=== PATIENT | male | born 1940 | race Caucasian/White ===

== ENCOUNTER → 2019-06-25 | Day surgery (SDC) | payer BC, MEDICARE, OTHER ==
[~2019-06-25] VITALS: Ht 182.9 cm; Wt 81.2 kg
[2019-06-25] VITALS (8 sets, daily range): BP systolic 82–120; BP diastolic 26–44; PULSE 70–77; RESP 22–27; Ht 182.9 cm; Wt 81.2 kg
[~2019-06-25] MED LIST: ADV25050; ASCO-288; CALC0.255; CEFAZOLIN 1 GM INJ ONE; DIPH-232; FURO40TA4; GEMF600T; INSU100V19; INSU100V23; INSU3INS7; METF-480; METO-448; METO10TA92; MIDAZOLAM 1 MG/ML 2 ML INJ ONE; MULT1CAP57; OMEP20CA16; POTA10TA37; PROP1TAB; RTPRO5; TIOT18CA; ZOLP5TAB
--- NOTE | 2019-06-25 13:54 | OPR ---
Date/Time of Note Date/Time of Note DATE: 06/25/19 TIME: 13:52 Operative Report Preoperative Diagnosis dysphagia Postoperative Diagnosis same Operation/Procedure Performed egd and peg Surgeon see signature line Bakery Sales Clerk none Anesthesia Type: MAC Anesthesiologist: CRISTI PEREIRA Estimated Blood Loss: none Transfusion none Specimen none Grafts/Implants none Tubes/Drains none Complications none Pt Condition Post Procedure: stable Disposition: PACU Indications dysphagia Procedure Description egd and peg ZENY MORILLO MD Jun 25, 2019 13:54
--- NOTE | 2019-06-25 21:04 | GILP ---
DATE OF PROCEDURE: PROCEDURE: Esophagogastroduodenoscopy. PREOPERATIVE DIAGNOSIS: The patient presenting with history of difficulty in swallowing. Previously , the patient had a gastrostomy tube in place which had to be removed because of the gastrostomy site infection and leaking from the gastrostomy site. Now, at this time, procedure is performed to creat e access for long-term nutritional support. POSTOPERATIVE DIAGNOSIS: The patient presenting with history of difficulty in swallowing. Previousl y, the patient had a gastrostomy tube in place which had to be removed because of the gastrostomy sit e infection and leaking from the gastrostomy site. Now, at this time, procedure is performed to crea te access for long-term nutritional support. G-tube was placed endoscopically. DESCRIPTION OF PROCEDURE: After informed written consent was obtained, the patient was asked to lie in the supine position. Intravenous anesthesia was given by anesthesiologist, Dr. Rodriguez. When the pa tient was somnolent, the Olympus video upper endoscope was inserted into the oropharynx, then into th e esophagus, subsequently into the stomach. Old gastrostomy site was noted. Duodenum appeared jenna l. At this time, the existing gastrostomy site was cleaned with Betadine and alcohol. At this time, it appears there is a reasonable opening; hence, I inserted the guidewire through this opening and f ound to be entering into the gastric cavity. The guidewire was grabbed with a polypectomy snare and then it was brought out through the mouth along with the endoscope. To this end of the guidewire, a #20 Microvasive G-tube was tied in a loop fashion and then it was brought out through the abdominal w all incision. The retention bumper was placed over the G-tube close to the skin. The tapered end of the gastrostomy tube was cut, the adapter was placed and the procedure was terminated. It is to be noted that this procedure was performed after using Betadine and alcohol to clean the gastrostomy sit e and antibiotic was also used on the site of the gastrostomy after the placement of the G-tube. The procedure was terminated. PLAN: Recommend starting G-tube feeding later this evening. Dictated By: ZENY ANTUNEZ/DANELLE Conf#: [id number] [facility]#: [id number] CC: HUSAM PRATHER MD;*End*
--- NOTE | 2019-06-28 13:46 | PREAC ---
Date/Time of Note Date/Time of Note DATE: 06/28/19 TIME: 13:44 Anesthesia Eval and Record Evaluation Time Pre-Procedure Interview DATE: 06/25/19 TIME: 13:10 Age 78 Sex male NPO: 8 hrs Preoperative diagnosis respiratory failure Planned procedure egd with peg Past Medical History Past Medical History: Includes Cardio: CAD Pulm: COPD, Other (trach) Neuro: Peripheral neuropathy Heme: Anemia Surgery & Anesthesia Issues No known issue Meds Anticoagulation: No Beta Juan F within 24 hr: Yes Reported Medications Insulin Regular, Human* (Novolin R*) 100 U/Ml Vial 12/18/10 Gemfibrozil* (Lopid*) 600 Mg Tablet 12/18/10 Zolpidem Tartrate* (Ambien*) 5 Mg Tablet 09/17/10 Albuterol Sulfate* (Proventil* Neb) 0.5 Ml Nebu 09/17/10 Diphenoxylate Hcl-Atropine (Lomotil) 1 Tab Tablet 09/17/10 Propoxyphene/Acetaminophen (Darvocet-N 100 Tablet) 1 Tab Tablet 09/17/10 Metoclopramide* (Reglan*) 10 Mg Tablet 09/17/10 Salmeterol Xinaf/Fluticasone* (Advair 250/50 Diskus*) 1 Inh Inha 09/17/10 Tiotropium Benkelman* (Spiriva*) 18 Mcg Cap.w.dev 09/17/10 Metformin* (Glucophage*) 850 Mg Tablet 09/17/10 Omeprazole* (Omeprazole*) 20 Mg Capsule. 09/17/10 Multivitamins W-Minerals (Multivitamin) 1 Cap Capsule 09/17/10 Ascorbic Acid (Vitamin C) 500 Mg Tablet 09/17/10 Furosemide (Lasix) 40 Mg Tab 09/17/10 Potassium Chloride* (K-Dur*) 10 Meq Tab.prt.sr 09/17/10 Metoprolol Tartrate* (Lopressor*) 25 Mg Tab 09/17/10 Gemfibrozil* (Lopid*) 600 Mg Tablet 09/17/10 Calcitriol* (Rocaltrol*) 0.25 Mcg Capsule 09/17/10 Insulin Glargine,Hum.rec.anlog (Lantus) 100 U/Ml Vial 09/17/10 Insulin Glargine,Hum.rec.anlog (Lantus) 100 U/Ml Vial 09/17/10 Insulin Regular, Human (Novolin R) 100 Units/Ml Pen 09/17/10 Meds reviewed: Yes Allergies Coded Allergies: codeine (Verified Allergy, Intermediate, HIVES, 12/18/10) lisinopril (Unverified Allergy, Unknown, unknown, 10/11/16) morphine (Unverified Allergy, Unknown, unknown, 10/11/16) Uncoded Allergies: FISH (Adverse Reaction, Mild, 10/20/16) SHELL FISH (Adverse Reaction, Mild, 10/20/16) Allergies Reviewed: Yes Labs/Studies Labs Reviewed: Reviewed by anesthesiologist test: N/A Pre-procedure Exam Last vitals Vital Signs Date Temp Pulse Resp B/P (MAP) Pulse Ox O2 O2 Flow FiO2 Time Delivery Rate 06/25/19 70 23 101/32 94 Mechanical 14:32 (55) Ventilator 06/25/19 98.2 14:02 Airway: Adequate mouth opening, Adequate thyromental dist Mallampati: Mallampati II Teeth: Normal Lung: Normal Heart: Normal ASA Physical Status ASA physical status: 4 Emergency: None Planned Anesthetic General/MAC: MAC Planned Pain Management Parenteral pain med Pre-operative Attestations Prior to commencing anesthesia and surgery, the patient was re-evaluated, there was verification of: *The patient's identity *The results of appropriate recent lab work and preoperative vital signs *The above evaluation not changing prior to induction *Anesthetic plan, risk benefits, alternative and complications discussed with patient/family; questions answered; patient/family understands, accepts and wishes to proceed. CRISTI PEREIRA Jun 28, 2019 13:46
--- NOTE | 2019-06-28 13:47 | PAC ---
Date/Time of Note Date/Time of Note DATE: 06/25/19 TIME: 14:35 Post-Anesthesia Notes Post-Anesthesia Note Last documented vital signs Vital Signs Date Temp Pulse Resp B/P (MAP) Pulse Ox O2 O2 Flow FiO2 Time Delivery Rate 06/25/19 70 23 101/32 94 Mechanical 14:32 (55) Ventilator 06/25/19 98.2 14:02 Activity: WNL Respiratory function: WNL Cardiovascular function: WNL Mental status: Baseline Pain reasonably controlled: Yes Hydration appropriate: Yes Nausea/Vomiting absent: Yes CRISTI PEREIRA Jun 28, 2019 13:47
== END | disposition home or self-care (01) ==
LOC: GIL 13:01
PROVIDERS: ATTEND Internal Medicine Gastroenterology
DX: R13.10 Dysphagia, unspecified (principal); I25.10 Atherosclerotic heart disease of native coronary artery without angina pectoris; J44.9 Chronic obstructive pulmonary disease, unspecified; J96.90 Respiratory failure, unspecified, unspecified whether with hypoxia or hypercapnia
CPT/HCPCS: 43235; 94002; J0690; J2250